=== PATIENT | female | born 1945 | race Hispanic/Latino ===

== ENCOUNTER → 2020-02-21 | Outpatient (CLI) | payer OTHER | END | disposition home or self-care (01) | LOC: SHCH 09:11 | PROVIDERS: ATTEND Internal Medicine Cardiovascular Disease | DX: I11.9 Hypertensive heart disease without heart failure (principal) | CPT/HCPCS: 93306 ==

== ENCOUNTER → 2020-02-22 | Outpatient (CLI) | payer OTHER ==
[~2020-02-22] MED LIST: REGADENOSON 0.4 MG/5 ML PF SYG IVP SCH
== END | disposition home or self-care (01) ==
LOC: SHCH 08:04
PROVIDERS: ATTEND Internal Medicine Cardiovascular Disease
DX: I10 Essential (primary) hypertension (principal); R94.31 Abnormal electrocardiogram [ECG] [EKG]
CPT/HCPCS: 78452; 93017; 96374; A9500 ×2; J2785

== ENCOUNTER → 2020-03-12 | Outpatient (CLI) | payer OTHER | END | disposition home or self-care (01) | LOC: OIH 10:04 | PROVIDERS: ATTEND Internal Medicine Cardiovascular Disease | DX: Z13.6 Encounter for screening for cardiovascular disorders (principal); K44.9 Diaphragmatic hernia without obstruction or gangrene | CPT/HCPCS: 75571 ==

== ENCOUNTER → 2022-09-08 | Outpatient (CLI) | payer OTHER | END | disposition home or self-care (01) | LOC: RAH 13:05 | PROVIDERS: ATTEND Internal Medicine Cardiovascular Disease | DX: Z13.6 Encounter for screening for cardiovascular disorders (principal); R93.1 Abnormal findings on diagnostic imaging of heart and coronary circulation | CPT/HCPCS: 75571 ==

== ENCOUNTER → 2022-09-17 | Outpatient (CLI) | payer OTHER, MEDICARE | END | disposition home or self-care (01) | LOC: SHCH 13:16 | PROVIDERS: ATTEND Internal Medicine Cardiovascular Disease | DX: I08.0 Rheumatic disorders of both mitral and aortic valves (principal); I50.32 Chronic diastolic (congestive) heart failure; E78.5 Hyperlipidemia, unspecified | CPT/HCPCS: 93306 ==

== ENCOUNTER 2023-04-11 10:06 | Emergency (ER) | payer OTHER, MEDICARE ==
[~2023-04-11] VITALS: Ht 144.8 cm; Wt 72.6 kg
[2023-04-11] MEDS ORDERED: MORPHINE 4 MG SYG IM ONE ×2 (11:30→12:00)
[2023-04-11 15:03] VITALS: BP 122/55; PULSE 69; RESP 18; O2SAT 98
== END 2023-04-11 15:13 | disposition home or self-care (01) ==
LOC: EDH 10:06
DX: S16.1XXA Strain of muscle, fascia and tendon at neck level, initial encounter (principal); S30.0XXA Contusion of lower back and pelvis, initial encounter; S00.03XA Contusion of scalp, initial encounter; S20.229A Contusion of unspecified back wall of thorax, initial encounter; I10 Essential (primary) hypertension; Z85.3 Personal history of malignant neoplasm of breast; W10.9XXA Fall (on) (from) unspecified stairs and steps, initial encounter; Y93.89 Activity, other specified; Y92.89 Other specified places as the place of occurrence of the external cause; Y99.8 Other external cause status
CPT/HCPCS: 99285; 70450; 72125; 72192; 72128; 96372; J2270

== ENCOUNTER 2023-10-05 17:54 | Emergency (ER) | payer OTHER, MEDICARE ==
[~2023-10-05] VITALS: Ht 152.4 cm; Wt 73.5 kg
[2023-10-05 18:27] LABS: MEAN CORPUSCULAR HEMOGLOBIN 26.5 pg (27.0-33.0); MEAN CORPUSCULAR HGB CONC 31.8 g/dL (32.0-36.0); MEAN CORPUSCULAR VOLUME 83.3 fL (79-99); RED BLOOD CELL COUNT(AUTO) 4.56 MIL/uL (4.00-5.50); RED CELL DISTRIBUTION WIDTH 14.4 % (11.0-15.5); WHITE BLOOD COUNT (AUTO) 8.8 K/uL (4.8-10.8)
[2023-10-05 18:37] LABS: CREATININE 0.7 mg/dL (0.5-1.0); POTASSIUM 4.2 mmol/L (3.5-5.1)
[2023-10-05 19:47] VITALS: BP 161/77; PULSE 70; RESP 17; O2SAT 96
[2023-10-05] MEDS ORDERED: IBUP-1493 PO (21:34)
== END 2023-10-05 22:01 | disposition home or self-care (01) ==
LOC: EDH 17:54
DX: S00.83XA Contusion of other part of head, initial encounter (principal); R07.89 Other chest pain; W01.0XXA Fall on same level from slipping, tripping and stumbling without subsequent striking against object, initial encounter; Y93.01 Activity, walking, marching and hiking; Y92.89 Other specified places as the place of occurrence of the external cause; Y99.8 Other external cause status
CPT/HCPCS: 36415; 70450; 71250; 72125; 80048; 85027